=== PATIENT | female | born 1980 | race Caucasian/White ===

== ENCOUNTER → 2017-05-25 | Outpatient (CLI) | payer BC ==
[~2017-05-25] MED LIST: ACET-749 PO; LEVO150T PO; LIOT5TAB PO; PRENTAB26 PO
== END | disposition home or self-care (01) ==
LOC: C.PAPS 09:39
PROVIDERS: ATTEND Physician Assistant
DX: Z01.411 Encounter for gynecological examination (general) (routine) with abnormal findings (principal); R87.610 Atypical squamous cells of undetermined significance on cytologic smear of cervix (ASC-US)

== ENCOUNTER → 2017-05-25 | Outpatient (CLI) | payer BC | END | disposition home or self-care (01) | LOC: C.LABSPEC 17:23 | PROVIDERS: ATTEND Physician Assistant | DX: N89.8 Other specified noninflammatory disorders of vagina (principal) ==

== ENCOUNTER → 2017-09-10 | Outpatient (CLI) | payer OTHER ==
--- NOTE | 2017-09-10 12:07 | DIAGNOSTIC IMAGING REPORT ---
THYROID ULTRASONOGRAPHY CLINICAL HISTORY: Lymphadenopathy. History of thyroid carcinoma. COMPARISON STUDY: No previous studies for comparison. FINDINGS: There are postsurgical changes of a total thyroidectomy. There is a 4 mm circumscribed nodule in the left thyroidectomy bed. No lesions are visualized within the right thyroidectomy bed. Within the left mid neck, there is a 19 x 9 x 4 mm hypoechoic focus consistent with a lymph node. This is not pathologically enlarged by size criteria. Posterior to the left inferior, is a 12 x 9 x 3 mm hypoechoic focus. This likely represents a lymph node although no fatty hilum is visualized. This corresponds the palpable abnormality. IMPRESSION: 1. The patient's palpable abnormality corresponds to a 12 x 9 x 3 mm hypoechoic nodule within the subcutaneous tissues behind the left ear. 2. Nonpathologically enlarged 19 x 9 x 4 mm lymph node within the left neck 3. 4 mm circumscribed nodule within the patient's left thyroidectomy bed Electronically signed by: Nikolas Whaley M.D. 09/10/2017 12:06 PM Dictated Date/Time: 09/10/2017 12:03 PM
== END | disposition home or self-care (01) ==
LOC: C.ULTR 11:16
PROVIDERS: ATTEND Nurse Practitioner
DX: R59.0 Localized enlarged lymph nodes (principal); C73 Malignant neoplasm of thyroid gland; R22.0 Localized swelling, mass and lump, head